=== PATIENT | female | born 1985 | race African-American/Black ===

== ENCOUNTER 2018-06-03 13:31 | Emergency (ER) | payer MEDICARE, OTHER ==
[2016-04-22 22:47] VITALS: BP 167/107
[~2018-06-03 13:31] MED LIST: GABA-585 PO; HYDR25TA9 PO; TIZA4CAP PO; [UNRECOGNIZED DRUG - OTHER]
== END 2018-06-03 13:40 | disposition left against medical advice (07) ==
LOC: ER 13:31
DX: M79.601 Pain in right arm (principal); Z53.21 Procedure and treatment not carried out due to patient leaving prior to being seen by health care provider

== ENCOUNTER 2018-08-23 10:34 | Emergency (ER) | payer MEDICARE, OTHER ==
[2016-04-22 22:47] VITALS: BP 167/107
[~2018-08-23] VITALS: Ht 154.9 cm; Wt 90.7 kg
[2018-08-23] MEDS ORDERED: SULF1TAB24 PO (10:58)
--- NOTE | 2018-08-23 10:59 | PHYS DOC ---
Past Medical History Past Medical History: Unknown Additional Past Medical Histor: Hydrocephalitis, intraperitoneal hypertension Past Surgical History: Other Additional Past Surgical Histo: UNKNOWN Alcohol Use: Occasionally Drug Use: Marijuana Adult General Chief Complaint Chief Complaint: ABSCESS HPI HPI Patient is a 33 year old [f__sex] who presents with [] Review of Systems Review of Systems Constitutional: Denies fever or chills [] Eyes: Denies change in visual acuity, redness, or eye pain [] HENT: Denies nasal congestion or sore throat [] Respiratory: Denies cough or shortness of breath [] Cardiovascular: No additional information not addressed in HPI [] GI: Denies abdominal pain, nausea, vomiting, bloody stools or diarrhea [] : Denies dysuria or hematuria [] Musculoskeletal: Denies back pain or joint pain [] Integument: Denies rash or skin lesions [] Neurologic: Denies headache, focal weakness or sensory changes [] Endocrine: Denies polyuria or polydipsia [] All other systems were reviewed and found to be within normal limits, except as documented in this note. Current Medications Current Medications Current Medications Medications (Trade) Dose Ordered Sig/Ramila Start Time Stop Time Status Last Admin Dose Admin Ceftriaxone Sodium (Rocephin Im) 1 gm 1X ONCE 08/23/18 11:15 08/23/18 11:16 DC 08/23/18 11:20 1 GM Allergies Allergies Allergies Coded Allergies Type Severity Reaction Last Updated Verified coconut oil Allergy Intermediate 12/07/15 Yes Physical Exam Physical Exam Constitutional: Well developed, well nourished, no acute distress, non-toxic appearance. [] HENT: Normocephalic, atraumatic, bilateral external ears normal, oropharynx moist, no oral exudates, nose normal. [] Eyes: PERRLA, EOMI, conjunctiva normal, no discharge. [] Neck: Normal range of motion, no tenderness, supple, no stridor. [] Cardiovascular:Heart rate regular rhythm, no murmur [] Lungs & Thorax: Bilateral breath sounds clear to auscultation [] Abdomen: Bowel sounds normal, soft, no tenderness, no masses, no pulsatile masses. [] Skin: Warm, dry, no erythema, no rash. [] Back: No tenderness, no CVA tenderness. [] Extremities: No tenderness, no cyanosis, no clubbing, ROM intact, no edema. [] Neurologic: Alert and oriented X 3, normal motor function, normal sensory function, no focal deficits noted. [] Psychologic: Affect normal, judgement normal, mood normal. [] Current Patient Data Vital Signs Vital Signs Date Time Temp Pulse Resp B/P (MAP) Pulse Ox O2 Delivery O2 Flow Rate FiO2 08/23/18 10:43 98.5 80 18 152/81 (104) 97 Room Air 98.5 EKG EKG [] Radiology/Procedures Radiology/Procedures [] Course & Med Decision Making Course & Med Decision Making Pertinent Labs and Imaging studies reviewed. (See chart for details) [] Dragon Disclaimer Dragon Disclaimer This electronic medical record was generated, in whole or in part, using a voice recognition dictation system. Departure Departure Impression: Primary Impression: Abscess Disposition: 01 HOME, SELF-CARE Condition: STABLE Referrals: UNKNOWN PCP NAME (PCP) Patient Instructions: Abscess Additional Instructions: Take the antibiotic as directed. Follow-up with your primary care provider in 3 days if not improving or return to the emergency department if worsening. Use hot compresses multiple times daily. Scripts Hydrocodone/Apap 5-325 (NORCO 5-325 TABLET) 1 Each Tablet 1 TAB PO PRN Q6HRS PRN for PAIN, #14 TAB 0 Refills Prov: ILEANA HOSUER APRN 08/23/18 Sulfamethoxazole/Trimethoprim (BACTRIM DS TABLET) 1 Each Tablet 1 TAB PO BID for abscess, #20 TAB Prov: ILEANA HOUSER APRN 08/23/18 ILEANA HOUSER APRN Aug 23, 2018 10:59
[2018-08-23] MEDS ORDERED: cefTRIAXone IM 1 GM VIAL IM ONE (11:15)
[2018-08-23] MEDS ORDERED: HYDR-3164 PO (11:25)
== END 2018-08-23 11:27 | disposition home or self-care (01) ==
LOC: ER 10:34
DX: L02.31 Cutaneous abscess of buttock (principal); I10 Essential (primary) hypertension
CPT/HCPCS: 96372; 99283; J0696